=== PATIENT | male | born 1990 | race Caucasian/White ===

== ENCOUNTER 2019-12-27 05:05 | Observation (INO) | payer OTHER ==
[~2019-12-27] VITALS: Ht 170.2 cm; Wt 78.5 kg
[2019-12-27] MEDS ORDERED: MORPHINE SULFATE INJ 4 MG/ML INJ 1ML IV STA (05:08)
[2019-12-27] MEDS ORDERED: ONDANSETRON HCL INJ 2MG/ML 2ML 2 MG/ML VIAL IV STA (05:08)
[2019-12-27] MEDS ORDERED: SODIUM CHLORIDE 0.9% 1000ML 1,000 ML IV STA (05:08)
[2019-12-27] MEDS ORDERED: DIATRIZOATE MEGL/DIATRIZOA SOD 30 ML BTL PO ONE (05:13)
[2019-12-27 05:31] LABS: BASOPHILS % 0.2 % (0.0-1.0); EOSINOPHILS % 0.3 % (0.0-6.0); HEMATOCRIT 45.7 % (38.2-49.6); HEMOGLOBIN 15.3 g/dL (14.0-18.0); LYMPHOCYTES # (AUTO) 1.5 (1.0-3.2); LYMPHOCYTES % 14.5 % (18.0-39.1); MEAN CORPUSCULAR HEMOGLOBIN 30.4 pg (28-32); MEAN CORPUSCULAR HGB CONC 33.5 g/dL (31-35); MEAN CORPUSCULAR VOLUME 90.9 fL (81-99); MONOCYTES # (AUTO) 0.6 (0.2-0.8); MONOCYTES % 5.6 % (4.4-11.3); NEUTROPHILS # (AUTO) 7.9 (2.1-6.9); NEUTROPHILS % 79.2 % (38.7-80.0); PLATELET COUNT 249 x10e3/uL (140-360); RED BLOOD COUNT 5.03 x10e6/uL (4.3-5.7); RED CELL DISTRIBUTION WIDTH 12.2 % (11.7-14.4)
[2019-12-27 05:52] LABS: ALANINE AMINOTRANSFERASE 14 IU/L (0-55); ALBUMIN 4.4 g/dL (3.5-5.0); ALBUMIN/GLOBULIN RATIO 1.6 (0.8-2.0); ALKALINE PHOSPHATASE 57 IU/L (40-150); ANION GAP 10.9 mmol/L (8-16); BLOOD UREA NITROGEN 11 mg/dL (7-26); BUN/CREATININE RATIO 10 (6-25); CARBON DIOXIDE 29 mmol/L (22-29); CHLORIDE 104 mmol/L (98-107); CREATININE, SERUM 1.11 mg/dL (0.72-1.25); EST GLOMERULAR FILTRATION RATE > 60 ML/MIN (60-); GLUCOSE 102 mg/dL (74-118); LIPASE 23 U/L (8-78); POTASSIUM 3.9 mmol/L (3.5-5.1); SODIUM 140 mmol/L (136-145)
[2019-12-27] MEDS ORDERED: SODIUM CHLORIDE 0.9% 50ML 50 ML ONE (06:09)
[2019-12-27] MEDS ORDERED: IOPAMIDOL 370 MG/ML 200 ML INFUS..BTL INJ ONE (06:10)
[2019-12-27 06:21] LABS: CLARITY,URINE TURBID (CLEAR); COLOR,URINE YELLOW (YELLOW); LEUKOCYTE ESTERASE ,URINE NEGATIVE (NEGATIVE); NITRITE,URINE NEGATIVE (NEGATIVE); PROTEIN,URINE DIPSTICK NEGATIVE (NEGATIVE); URINE UROBILINOGEN 1 mg/dL (0.2 - 1)
[2019-12-27 06:22] LABS: BILIRUBIN,URINE MODERATE (NEGATIVE); KETONES,URINE NEGATIVE (NEGATIVE)
[2019-12-27 06:26] LABS: AMORPHOUS SEDIMENT,URINE MANY (FEW); BACTERIA,URINE RARE /HPF; MUCUS,URINE MODERATE (RARE); WBC,URINE (MAN) 0-5 /HPF (0-5)
--- NOTE | 2019-12-27 06:42 | Diagnostic Imaging Report ---
EXAM: CT Abdomen and Pelvis WITH contrast INDICATION: Right lower quadrant pain. Appendicitis. COMPARISON: None. TECHNIQUE: Abdomen and pelvis were scanned utilizing a multidetector helical scanner from the lung base to the pubic symphysis after administration of IV contrast. Coronal and sagittal reformations were obtained. Routine protocol was performed. Scan was performed when during portal venous phase. IV CONTRAST: 100 cc Isovue-370. ORAL CONTRAST: Water RADIATION DOSE: Total DLP: 292.78 mGy*cm Estimated effective dose: (DLP x 0.015 x size factor) mSv COMPLICATIONS: None FINDINGS: LINES and TUBES: None. LOWER THORAX: Unremarkable HEPATOBILIARY: No focal hepatic lesions. No biliary ductal dilation. GALLBLADDER: No radio-opaque stones or sludge. No wall thickening. SPLEEN: Enlarged measuring 15.6 cm in length. PANCREAS: No focal masses or ductal dilatation. ADRENALS: No adrenal nodules KIDNEYS/URETERS: Kidneys enhance symmetrically. No hydronephrosis. No cystic or solid mass lesions. No stones. GI TRACT: No abnormal distention, wall thickening, or evidence of bowel obstruction. The appendix is mildly dilated up to 1.0 cm in diameter, with minimal surrounding inflammatory changes which may reflect early appendicitis. PELVIC ORGANS/BLADDER: Unremarkable. LYMPH NODES: No lymphadenopathy. VESSELS: Unremarkable. PERITONEUM / RETROPERITONEUM: No free air or fluid. BONES: Left effusion of L4-L5 with transpedicular screws. SOFT TISSUES: Unremarkable. IMPRESSION: 1. Findings acute suggestive of acute appendicitis in this patient's clinical setting. 2. Splenomegaly. 3. Discussed with Dr. Waller from the [facility] [place] at 6:45 AM on 12/27/19. Signed by: Dr. Alverto Piper M.D. on 12/27/2019 6:46 AM
--- OUTSIDE RECORDS SUMMARY | 2019-12-27 07:04 | XMS REPORT ---
Author Author [facility] Address Unknown Phone Unavailable Care Team Providers Care Lithographic General Worker Name Role Phone CIRA KATHERINE Unavailable Unavailable SAMARIA JAMES Unavailable Unavailable ANGEL LUIS LAZARO Unavailable Unavailable Problems This patient has no known problems. Allergies, Adverse Reactions, Alerts This patient has no known allergies or adverse reactions. Medications This patient has no known medications. Results Test Description Test Time Test Comments Text Results Atomic Results Result Comments CT ABDOMEN/PELVIS W 2019-12-27 06:27:00 [place] [address] Patient Name: PANDA SKELTON MR #: [id number] : 1990 Age/Sex: 29/M Req #: [id number] Adm Physician: Ordered by: KATHERINE WALLER DO Report #: [id number] Location: ER Room/Bed: Procedure: [id number] CT/CT ABDOMEN/PELVIS W Exam Date: Exam Time: REPORT STATUS: Signed EXAM: CT Abdomen and Pelvis WITH contrast INDICATION: Right lower quadrant pain. Appendicitis. COMPARISON: None. TECHNIQUE: Abdomen and pelvis were scanned utilizing a multidetector helical scanner from the lung base to the pubic symphysis after administration of IV contrast. Coronal and sagittal reformations were obtained. Routine protocol was performed. Scan was performed when during portal venous phase. IV CONTRAST: 100 cc Isovue-370. ORAL CONTRAST: Water RADIATION DOSE: Total DLP: 292.78 mGy*cm Estimated effective dose: (DLP x 0.015 x size factor) mSv COMPLICATIONS: None FINDINGS: LINES and TUBES: None. LOWER THORAX: Unremarkable HEPATOBILIARY: No focal hepatic lesions. No biliary ductal dilation. GALLBLADDER: No radio-opaque stones or sludge. No wall thickening. SPLEEN: Enlarged measuring 15.6 cm in length. PANCREAS: No focal masses or ductal dilatation. ADRENALS: No adrenal nodules KIDNEYS/URETERS: Kidneys enhance symmetrically. No hydronephrosis. No cystic or solid mass lesions. No stones. GI TRACT: No abnormal distention, wall thickening, or evidence of bowel obstruction. The appendix is mildly dilated up to 1.0 cm in diameter, with minimal surrounding inflammatory changes which may reflect early appendicitis. PELVIC ORGANS/BLADDER: Unremarkable. LYMPH NODES: No lymphadenopathy. VESSELS: Unremarkable. PERITONEUM / RETROPERITONEUM: No free air or fluid. BONES: Left effusion of L4-L5 with transpedicular screws. SOFT TISSUES: Unremarkable. IMPRESSION: 1. Findings acute suggestive of acute appendicitis in this patient's clinical setting. 2. Splenomegaly. 3. Discussed with Dr. Waller from the our at 6:45 AM on 12/27/19. Signed by: Dr. Alverto Dunlap M.D. on 12/27/2019 6:46 AM Dictated By: SUHAS DUNLAP MD, MD [id number] Transcribed By: JACKELINE on 12/27/19 0646 COPY TO: KATHERINE WALLER DO CT ABDOMEN/PELVIS W/CONTRAST 2018-11-20 18:42:03 Procedure: CT ABDOMEN/PELVIS W/CONTRASTOrder Date: 11/20/2018 4:38 PMOrdering Provider: SAMARIA Wilsoninical Indication: [id number]: Left sided abdominal painComparison: NoneTechnique: Using a helical scanner, sequential axial imaging of the abdomen andpelvis were obtained following the administration of oral and IV contrast. Theexam extended from the level of the lung bases superiorly to the level of thepubic symphysis inferiorly. 2-D sagittal and coronal reconstructed images wereobtained. This exam was performed according to the departmentaldose- optimization program which includes automated exposure control, adjustmentof the mA and/or kV according to patient size and/or use of iterativereconstruction techniques.Findings:The lung bases are clear.No basilar consolidation or effusion.The liver is normal in size and density. Hepatic contour is normal. There are nohepatic masses. No intrahepatic ductal dilatation.The gallbladder is normal in size and density. There is no evidence ofcholelithiasis or cholecystitis by CT criteria.The spleen is mildly enlarged but overall stable. There are no intrinsic splenicmasses. There is no evidence of a subcapsular hematoma or fluid collection.The pancreas is normal in size and density. There are no pancreaticcalcifications or masses. There is no pancreatic ductal dilatation.The adrenal glands are normal in size bilaterally. There are no adrenal massesbilaterally.The right kidney is normal in size and shape.The renal cortical enhancement is normal.There are no calculi, masses, or hydronephrosis.The left kidney is normal in size and shape.The renal cortical enhancement is normal.There are no calculi, masses, or hydronephrosis.Aorta is normal in size and diameter. There is no aneurysm. The IVC is normal insize and location.There is no lymphadenopathy in the abdomen, pelvis, or either inguinal region.Mild diverticulosis of the distal descending and sigmoid colon without evidenceof diverticulitis.There is no small or large bowel distention. There is no bowel thickening. Thereare no inflammatory changes in the abdomen or pelvis.The appendix is visualized and normal in diameter. There is no periappendicealsoft tissue stranding. No CT findings of appendicitis.Urinary bladder has a normal appearance.No inguinal masses.Intact fusion at L4- 5.IMPRESSION:1. No acute inflammatory change in the abdomen or pelvis.2. Mild diverticulosis of the distal descending and proximal sigmoid colonwithout diverticulitis.3. Stable mild splenomegaly.4. Intact fusion at L4-5.5. No other significant findings.This final report was electronically signed by Dr Cal Forbes MD 11/20/20186:35 PMDictated By: CAL FORBES.Date: 11/20/2018 18:35 URINALYSIS WITH MICROSCOPIC 2018-11-20 17:59:00 Color (test code=UCOLR) Yellow Lt. Yellow Clarity (test code=UCLAR) Clear Glucose (test code=UGLUC) Negative Negative Bilirubin (test code=UBILI) Negative Negative Ketones (test code=UKET) Negative Negative Specific Otis (test code=USPGR) 1.015 1.005-1.030 Blood (test code=UBLD) Negative Negative PH (test code=UPH) 6.0 4.5-8.0 Protein (test code=UPROT) Negative Negative Urobilinogen (test code=U UROB) 0.2 E.U./dL >0.2 Nitrite (test code=UNITR) Negative Negative Leukocyte Esterase (test code=ULEUK) Negative Negative Bacteria (test code=UBACT) n/a NONE SEEN AMYLASE, [id number] 17:25:00* Test Item Value Reference Range Comments Amylase (test code=AMYL) 54 U/L 12-103 [id number] 17:25:00* Test Item Value Reference Range Comments Glucose (test code=GLU) 122 mg/dl 75-110 BUN (test code=BUN) 15.0 mg/dl 6.0-17.0 Creatinine (test code=CREA) 1.2 mg/dl 0.4-1.2 Sodium (test code=NA) 137 mmol/l 137-145 Potassium (test code=K) 3.4 mmol/l 3.5-5.0 Chloride (test code=CL) 102 mmol/l 98-107 CO2 (test code=CO2) 24 mmol/l 22-30 Calcium (test code=CALC) 9.0 mg/dl 8.4-10.2 T Protein (test code=TP) 7.2 gm/dl 5.1-8.7 Albumin (test code=ALB) 4.2 gm/dl 3.5-4.6 A/G Ratio (test code=AGRAT) 1.4 % 1.1-2.2 AST (SGOT) (test code=AST) 25 U/L 11-36 ALT (SGPT) (test code=ALT) 43 U/L 11-40 Alkaline Phos (test code=ALKP) 71 U/L 47-114 Total Bilirubin (test code=TBIL) 0.6 mg/dl 0.2-1.2 Globulin (test code=GLOBU) 3.0 gm/dl 2.3-3.5 Calcium, Corrected (test code=CALCCORR) 8.8 mg/dl 8.4-10.2 Various formulas exist for corrected serum calcium results, each yielding different values. This corrected result was based on the formula: Corrected Calcium=SerumCalcium + [0.8 * ( 4 - SerumAlbumin)] EGFR if (test code=EGFRAA) >60 mL/min/1.73m\S\2 EGFR if Non- (test code=EGFRNA) >60 mL/min/1.73m\S\2 Estimated Glomerular Filtration Rate (eGFR) Reference Intervals Decision Points for 18 years and older and average body mass: >=60 Does not exclude kidney disease. 30 - 59 Suggests moderate chronic kidney disease and indicates the need for further investigation including assessment of proteinuria and cardiovascular factors. < 30 Usually indicates a need for referral for assessment and management of chronic kidney failure. [id number] 17:25:00* Test Item Value Reference Range Comments Lipase (test code=LIPA) 170 U/L 8-223 CBC WITH AUTO [id number] 17:11:00* Test Item Value Reference Range Comments WBC (test code=WBC) 6.25 10\S\3/ul 4.80-10.80 RBC (test code=RBC) 4.87 10\S\6/ul 4.70-6.10 Hemoglobin (test code=HGB) 15.2 gm/dl 14.0-18.0 Hematocrit (test code=HCT) 42.6 % 42.0-50.0 MCV (test code=MCV) 87.5 fL 80.0-94.0 MCH (test code=MCH) 31.2 pg 27.0-31.0 MCHC (test code=MCHC) 35.7 gm/dl 33.0-37.0 RDW (test code=RDWVC) 11.8 % 11.5-14.5 Platelet (test code=PLT) 233 10\S\3/ul 130-400 MPV (test code=MPV) 9.7 fL 7.4-10.4 NE% (test code=NE) 62.9 % 42.0-75.0 LY% (test code=LY) 29.8 % 13.0-42.0 MO% (test code=MO) 5.4 % 4.0-14.0 EO% (test code=EO) 1.4 % 1.0-5.0 BA% (test code=BA) 0.3 % 0.0-3.0 IG% (test code=IG%) 0.2 % 0.0-0.4 NRBC, Auto (test code=NRBC_AUTO) 0 /100WBC 0-2 CT ABDOMEN/PELVIS W/[id number] 00:52:36NPO 4 hours. Do not withhold meds EXAM:CT Abdomen and Pelvis With Intravenous ContrastEXAM DATE/TIME:07/23/2018 12 :02 AMCLINICAL HISTORY:28 years old, male; Pain; Abdominal pain; Localized; Righ t lower quadrant(rlq); Prior surgery; Surgery date: 6+ months; Surgery type: Low back surgery;Patient HX: Right lower quadrant abdomen pain x 3 days without anya sea orvomiting.TECHNIQUE:Axial computed tomography images of the abdomen and pel vis with intravenouscontrast. All CT scans at this facility use at least one of these doseoptimization techniques: automated exposure control; mA and/or kV adj ustmentper patient size (includes targeted exams where dose is matched to clinic alindication); or iterative reconstruction.Coronal and sagittal reformatted imag es were created and reviewed.CONTRAST:100 mL of ISOVUE 300 administered intraven ously.COMPARISON:No relevant prior studies available.FINDINGS:Lung bases: Unrem arkable No mass. No consolidation.ABDOMEN:Liver: No mass or intrahepatic bili esme ductal dilatation.Gallbladder and bile ducts: No wall thickening, visualize d gallstone orpericholecystic fluid. No extrahepatic ductal dilatation.Pancreas: No mass, calcification, ductal dilatation or periperipancreaticeffusion.Spleen: The spleen is prominent measuring 17 cm length. No focal lesion orperisplenic abnormality.Adrenals: Unremarkable. No mass lesions.Kidneys and ureters: No m ass, hydronephrosis or urolithiasis. Normal ureters.Stomach and bowel: No bowel wall thickening, mesenteric abnormalities orobstruction.PELVIS:Appendix: Well visualized. No findings to suggest acute appendicitis.Bladder: Unremarkable. No focal wall thickening as visualized. Normalperivesicle spaces.Reproductive: No mass or fluid collections.ABDOMEN and PELVIS:Intraperitoneal space: Unremarkab le No free air. No significant fluidcollection.Bones/joints: No acute fractur e. No dislocation.Soft tissues: Unremarkable.Vasculature: Unremarkable No ab dominal aortic aneurysm.Lymph nodes: No pathologic lymph node enlargement.IMPRE SSION:No acute findings. Splenomegaly.This Final report was electronically sign ed by Rito Cano MD on 23 Jul 201812:52 AM CDT.Dictated By: Tone CANO e: 07/23/2018 00:52URINALYSIS WITHOUT [id number] 00:49:00* Test Item Value Reference Range Comments Color (test code=UCOLR) Yellow Lt. Yellow Clarity (test code=UCLAR) Clear Glucose (test code=UGLUC) Negative Negative Bilirubin (test code=UBILI) Negative Negative Ketones (test code=UKET) Negative Negative Specific Otis (test code=USPGR) 1.020 1.005-1.030 Blood (test code=UBLD) Negative Negative PH (test code=UPH) 6.0 4.5-8.0 Protein (test code=UPROT) Negative Negative Urobilinogen (test code=U UROB) 0.2 E.U./dL >0.2 Nitrite (test code=UNITR) Negative Negative Leukocyte Esterase (test code=ULEUK) Negative Negative LIPASE, [id number] 23:33:00* Test Item Value Reference Range Comments Lipase (test code=LIPA) 217 U/L 8-223 [id number] 23:33:00* Test Item Value Reference Range Comments Glucose (test code=GLU) 110 mg/dl 75-110 BUN (test code=BUN) 17.0 mg/dl 6.0-17.0 Creatinine (test code=CREA) 1.1 mg/dl 0.4-1.2 Sodium (test code=NA) 139 mmol/l 137-145 Potassium (test code=K) 3.6 mmol/l 3.5-5.0 Chloride (test code=CL) 105 mmol/l 98-107 CO2 (test code=CO2) 24 mmol/l 22-30 Calcium (test code=CALC) 9.0 mg/dl 8.4-10.2 T Protein (test code=TP) 6.8 gm/dl 5.1-8.7 Albumin (test code=ALB) 3.7 gm/dl 3.5-4.6 A/G Ratio (test code=AGRAT) 1.2 % 1.1-2.2 AST (SGOT) (test code=AST) 18 U/L 11-36 ALT (SGPT) (test code=ALT) 33 U/L 11-40 Alkaline Phos (test code=ALKP) 56 U/L 47-114 Total Bilirubin (test code=TBIL) 0.5 mg/dl 0.2-1.2 Globulin (test code=GLOBU) 3.1 gm/dl 2.3-3.5 Calcium, Corrected (test code=CALCCORR) 9.2 mg/dl 8.4-10.2 Various formulas exist for corrected serum calcium results, each yielding different values. This corrected result was based on the formula: Corrected Calcium=SerumCalcium + [0.8 * ( 4 - SerumAlbumin)] EGFR if (test code=EGFRAA) >60 mL/min/1.73m\S\2 EGFR if Non- (test code=EGFRNA) >60 mL/min/1.73m\S\2 Estimated Glomerular Filtration Rate (eGFR) Reference Intervals Decision Points for 18 years and older and average body mass: >=60 Does not exclude kidney disease. 30 - 59 Suggests moderate chronic kidney disease and indicates the need for further investigation including assessment of proteinuria and cardiovascular factors. < 30 Usually indicates a need for referral for assessment and management of chronic kidney failure. CBC WITH AUTO [id number] 23:20:00* Test Item Value Reference Range Comments WBC (test code=WBC) 6.60 10\S\3/ul 4.80-10.80 RBC (test code=RBC) 4.72 10\S\6/ul 4.70-6.10 Hemoglobin (test code=HGB) 14.7 gm/dl 14.0-18.0 Hematocrit (test code=HCT) 41.7 % 42.0-50.0 MCV (test code=MCV) 88.3 fL 80.0-94.0 MCH (test code=MCH) 31.1 pg 27.0-31.0 MCHC (test code=MCHC) 35.3 gm/dl 33.0-37.0 RDW (test code=RDWVC) 11.6 % 11.5-14.5 Platelet (test code=PLT) 207 10\S\3/ul 130-400 MPV (test code=MPV) 9.4 fL 7.4-10.4 NE% (test code=NE) 57.9 % 42.0-75.0 LY% (test code=LY) 31.8 % 13.0-42.0 MO% (test code=MO) 7.3 % 4.0-14.0 EO% (test code=EO) 2.3 % 1.0-5.0 BA% (test code=BA) 0.5 % 0.0-3.0 IG% (test code=IG%) 0.2 % 0.0-0.4 NRBC, Auto (test code=NRBC_AUTO) 0 /100WBC 0-2
--- OUTSIDE RECORDS SUMMARY | 2019-12-27 07:04 | XMS REPORT | Continuity of Care Document ---
Author Author [facility] Organization [facility] Address [address] [place] [address] ;hxz=[phone] Care Team Providers Care Financial Management Consultant Name Role Phone ANGEL LUIS LAZARO Admphys ANGEL LUIS LAZ[facility] Admission Diagnosis * No data in the System Social History Element Description Code Description Smoking Status Code System Start Date End Date Smoking Status [id number] Never smoker SNOMED-CT Problems * No data in the system Medications RxNorm Medication Dose Route Instructions Indications Start Date End Date Status 765980 Promethazine Hydrochloride 25 MG Oral Tablet 25 milligram oral orally every 6 hours as needed. (3 days) nausea and vomiting Active Allergies * No Known Allergies Results Laboratory Results Order: URINALYSIS W/O MICROSCOPIC EXAM Specimen Source: URINE SPECIMENS Body Site: [facility] Test Result Flag Range Unit Date 5778-03 1Color:Type:Pt:Urine:Nom Yellow A Lt. Yellow 07/23/2018 00:46 5767-9 1Appearance:Aper:Pt:Urine:Nom Clear 07/23/2018 00:46 2349-9 1Glucose:ACnc:Pt:Urine:Ord Negative Negative 07/23/2018 00:46 5770-3 1Bilirubin:ACnc:Pt:Urine:Ord:Test strip Negative Negative 07/23/2018 00:46 2514-8 1Ketones:ACnc:Pt:Urine:Ord:Test strip Negative Negative 07/23/2018 00:46 5811-5 1Specific gravity:Rden:Pt:Urine:Qn:Test strip 1.020 A 1.005-1.030 07/23/2018 00:46 5794-3 1Hemoglobin:ACnc:Pt:Urine:Ord:Test strip Negative Negative 07/23/2018 00:46 5803-2 1pH:LsCnc:Pt:Urine:Qn:Test strip 6.0 A 4.5-8.0 07/23/2018 00:46 20267-8 1Protein:ACnc:Pt:Urine:Ord:Test strip Negative Negative 07/23/2018 00:46 5818-0 1Urobilinogen:ACnc:Pt:Urine:Ord:Test strip 0.2 E.U./dL A 0.2 07/23/2018 00:46 5802-4 1Nitrite:ACnc:Pt:Urine:Ord:Test strip Negative Negative 07/23/2018 00:46 5799-2 1Leukocyte esterase:ACnc:Pt:Urine:Ord:Test strip Negative Negative 07/23/2018 00:46 * Performing Lab Footnotes:* [address] [place] [address] - [id number] - [address] [place], [place] [address] - MD: DIRECTOR JONATHAN WEIR Order: CBC PLATELET AUTO DIFF Specimen Source: BLOOD Body Site: LOINC Test Result Flag Range Unit Date 01890-7 1Leukocytes^^corrected for nucleated erythrocytes:NCnc:Pt:Bld:Qn:Automated count 6.6 4.80-10.80 10^3/ul 07/22/2018 23:11 789-8 1Erythrocytes:NCnc:Pt:Bld:Qn:Automated count 4.72 4.70-6.10 10^6/ul 07/22/2018 23:11 718-7 1Hemoglobin:MCnc:Pt:Bld:Qn 14.7 14.0-18.0 gm/dl 07/22/2018 23:11 4544-3 1Hematocrit:VFr:Pt:Bld:Qn:Automated count 41.7 L 42.0-50.0 % 07/22/2018 23:11 787-2 1Erythrocyte mean corpuscular volume:EntVol:Pt:RBC:Qn:Automated count 88.3 80.0-94.0 fL 07/22/2018 23:11 785-6 1Erythrocyte mean corpuscular hemoglobin:EntMass:Pt:RBC:Qn:Automated count 31.1 H 27.0-31.0 pg 07/22/2018 23:11 786-4 1Erythrocyte mean corpuscular hemoglobin concentration:MCnc:Pt:RBC:Qn:Automated count 35.3 33.0-37.0 gm/dl 07/22/2018 23:11 788-0 1Erythrocyte distribution width:Ratio:Pt:RBC:Qn:Automated count 11.6 11.5-14.5 % 07/22/2018 23:11 777-3 1Platelets:NCnc:Pt:Bld:Qn:Automated count 207 130-400 10^3/ul 07/22/2018 23:11 64258-1 1Platelet mean volume:EntVol:Pt:Bld:Qn:Automated count 9.4 A 7.4-10.4 fL 07/22/2018 23:11 770-8 1Neutrophils/100 leukocytes:NFr:Pt:Bld:Qn:Automated count 57.9 42.0-75.0 % 07/22/2018 23:11 736-9 1Lymphocytes/100 leukocytes:NFr:Pt:Bld:Qn:Automated count 31.8 13.0-42.0 % 07/22/2018 23:11 5905-5 1Monocytes/100 leukocytes:NFr:Pt:Bld:Qn:Automated count 7.3 4.0-14.0 % 07/22/2018 23:11 713-8 1Eosinophils/100 leukocytes:NFr:Pt:Bld:Qn:Automated count 2.3 1.0-5.0 % 07/22/2018 23:11 706-2 1Basophils/100 leukocytes:NFr:Pt:Bld:Qn:Automated count 0.5 0.0-3.0 % 07/22/2018 23:11 1IG% 0.2 0.0-0.4 % 07/22/2018 23:11 1NRBC, Auto 0 0-2 /100WBC 07/22/2018 23:11 * Performing Lab Footnotes:* 1[facility] - [id number] - [address] [place] [address], [place] [address] [facility] - MD: DIRECTOR JONATHAN WEIR Order: CMP COMPREHENSIVE METABOLIC PANEL Specimen Source: BLOOD Body Site: [facility] Test Result Flag Range Unit Date 1Glucose 110 75-110 mg/dl 07/22/2018 23:11 1BUN 17 6.0-17.0 mg/dl 07/22/2018 23:11 1Creatinine 1.1 0.4-1.2 mg/dl 07/22/2018 23:11 1Sodium 139 137-145 mmol/l 07/22/2018 23:11 1Potassium 3.6 3.5-5.0 mmol/l 07/22/2018 23:11 1Chloride 105 98-107 mmol/l 07/22/2018 23:11 1CO2 24 22-30 mmol/l 07/22/2018 23:11 1Calcium 9 8.4-10.2 mg/dl 07/22/2018 23:11 1T Protein 6.8 5.1-8.7 gm/dl 07/22/2018 23:11 1Albumin 3.7 3.5-4.6 gm/dl 07/22/2018 23:11 1A/G Ratio 1.2 1.1-2.2 % 07/22/2018 23:11 1AST (SGOT) 18 11-36 U/L 07/22/2018 23:11 1ALT (SGPT) 33 11-40 U/L 07/22/2018 23:11 1Alkaline Phos 56 47-114 U/L 07/22/2018 23:11 1Total Bilirubin 0.5 0.2-1.2 mg/dl 07/22/2018 23:11 1Globulin 3.1 2.3-3.5 gm/dl 07/22/2018 23:11 1Calcium, Corrected 9.2 8.4-10.2 mg/dl 07/22/2018 23:11 Note: Various formulas exist for corrected serum calcium results, each yielding different values. This corrected result was based on the formula: Corrected Calcium=SerumCalcium + [0.8 * ( 4 - SerumAlbumin)] 1EGFR if >60 mL/min/1.73m^2 07/22/2018 23:11 1EGFR if Non- >60 mL/min/1.73m^2 07/22/2018 23:11 Note: Estimated Glomerular Filtration Rate (eGFR) Reference Intervals Decision Points for 18 years and older and average body mass: >=60 Does not exclude kidney disease. 30 - 59 Suggests moderate chronic kidney disease and indicates the need for further investigation including assessment of proteinuria and cardiovascular factors. < 30 Usually indicates a need for referral for assessment and management of chronic kidney failure. * Performing Lab Footnotes:* 1[facility] [id number] - [address] [place] [address] CORNELIO De La Vega MD: DIRECTOR JONATHAN WEIR Order: LIPASE SERUM Specimen Source: BLOOD Body Site: [facility] Test Result Flag Range Unit Date 1Lipase 217 8-223 U/L 07/22/2018 23:11 * Performing Lab Footnotes:* [address] [place] [address] [id number] - [address] [place] [address] CORNELIO De La Vega MD: DIRECTOR JONATHAN WEIR Radiology Results Order: [id number] CT ABDOMEN/PELVIS W/CONTRAST* Exam Completion Date:07/23/2018 00:02 EXAM: CT Abdomen and Pelvis With Intravenous ContrastEXAM DATE/TIME: 8 12:02 AMCLINICAL HISTORY: 28 years old, male; Pain; Abdominal pain; Localized ; Right lower quadrant (rlq); Prior surgery; Surgery date: 6+ months; Surgery ty pe: Low back surgery; Patient HX: Right lower quadrant abdomen pain x 3 days wit hout nausea or vomiting.TECHNIQUE: Axial computed tomography images of the abdo men and pelvis with intravenous contrast. All CT scans at this facility use at least one of these dose optimization techniques: automated exposure control; mA and/or kV adjustment per patient size (includes targeted exams where dose is mat ched to clinical indication); or iterative reconstruction. Coronal and sagittal reformatted images were created and reviewed.CONTRAST: 100 mL of ISOVUE 300 ad ministered intravenously. COMPARISON: No relevant prior studies available.FIND INGS: Lung bases: Unremarkable No mass. No consolidation. ABDOMEN: Liver: No mass or intrahepatic biliary ductal dilatation. Gallbladder and bile ducts: No wall thickening, visualized gallstone or pericholecystic fluid. No extrahepa tic ductal dilatation. Pancreas: No mass, calcification, ductal dilatation or periperipancreatic effusion. Spleen: The spleen is prominent measuring 17 cm l ength. No focal lesion or perisplenic abnormality. Adrenals: Unremarkable. No mass lesions. Kidneys and ureters: No mass, hydronephrosis or urolithiasis. No rmal ureters. Stomach and bowel: No bowel wall thickening, mesenteric abnormal ities or obstruction. PELVIS: Appendix: Well visualized. No findings to sugges t acute appendicitis. Bladder: Unremarkable. No focal wall thickening as visua lized. Normal perivesicle spaces. Reproductive: No mass or fluid collections. ABDOMEN and PELVIS: Intraperitoneal space: Unremarkable No free air. No sign ificant fluid collection. Bones/joints: No acute fracture. No dislocation. S oft tissues: Unremarkable. Vasculature: Unremarkable No abdominal aortic ane urysm. Lymph nodes: No pathologic lymph node enlargement.IMPRESSION: No acute findings. Splenomegaly.This Final report was electronically signed by Delia Harman MD on 23 Jul 2018 12:52 AM CDT.Dictated By: DELIA CANODate: 07/07 00:52 Vital Signs Vitals Value Date Body Temperature 98.9 F 07/23/2018 Pulse Rate 83 (beats)/min 07/23/2018 Respiratory Rate 18 (breaths)/min 07/23/2018 O2% BldC Oximetry 96 % 07/23/2018 BP Systolic 124 mmHg 07/23/2018 BP Diastolic 79 mmHg 07/23/2018 Height 67 in 07/22/2018 Weight Measured 200 lbs 07/22/2018 BSA (Body Surface Area) 2.71346 m2 07/22/2018 BMI (Body Mass Index) 31.3 kg/m2 07/22/2018 Advance Directives Patient does NOT have Living Will Directive Type Effective Date Survey Interviewer Notes Supporting Document Name Address Phone No Directive Type specified 07/22/2018 22:26 Not Specified Not Specified Not Specified None No Family History * Family History Unknown Plan of Care * No data in the system Procedures Code Code System Procedure Name Target Site Date of Procedure CT ABDOMEN/PELVIS W/CONTRAST 07/23/2018 00:52 [id number] SNOMED Spinal fusion of atlas-axis 01/2016 Encounters * No data in the system Immunizations * No data in the system Functional Status * No data in the system Hospital Discharge Instructions * Discharge Instructions 2* Discharge Diagnosis* acute abd pain * Important Information* Consult your physician or return to the Emergency Department immediately if worse, if not better as expected, or if any problems arise. * Follow Up Care* Yes * Important Information* Please understand that you have received care only on an emergency basis. If your condition does not improve, you should call your personal physician for follow-up care. If you do not have a physician, you may call the referred physician listed. * If you have questions about your care or these discharge instructions, you may call the Emergency Department. Please take your discharge paperwork with you to any follow-up appointments. * Follow Up Care* Patient To Schedule * Follow-Up With:* Primary Care Physician * Activity Level* As tolerated, unrestricted * Diet* Regular * Prescriptions Given Via:* Electronically sent to patient's preferred pharmacy. * Patient Teaching* Patient education provided
--- OUTSIDE RECORDS SUMMARY | 2019-12-27 07:04 | XMS REPORT | Continuity of Care Document ---
Author Author [facility] Organization [facility] Address [address] [place] [address] ;bsa=[phone] Care Team Providers Care Shear Tender Name Role Phone SAMARIA JAMES Admphys SAMARIA JAMES [facility] Admission Diagnosis Code Admission Diagnosis Date Abdominal pain Social History Element Description Code Description Smoking Status Code System Start Date End Date Smoking Status [id number] Never smoker SNOMED-CT Problems * No data in the system Medications RxNorm Medication Dose Route Instructions Indications Start Date End Date Status 891245 Ciprofloxacin 500 MG Oral Tablet 500 milligram oral orally every 12 hours (7 days) Active 680122 Dicyclomine Hydrochloride 20 MG Oral Tablet 20 milligram oral orally 4 times per day (5 days) Active 71035 Ondansetron 4 milligram oral orally every 6 hours as needed. (5 days) (as needed for nausea and vomiting) nausea and vomiting Active 088232 Promethazine Hydrochloride 25 MG Oral Tablet 25 milligram oral orally every 6 hours as needed. (3 days) nausea and vomiting No Longer Active Allergies * No Known Allergies Results Laboratory Results Order: UA URINALYSIS WITH MICROSCOPY Specimen Source: URINE SPECIMENS Body Site: [facility] Test Result Flag Range Unit Date 5778-6 1Color:Type:Pt:Urine:Nom Yellow A Lt. Yellow 11/20/2018 17:56 5767-9 1Appearance:Aper:Pt:Urine:Nom Clear 11/20/2018 17:56 2349-9 1Glucose:ACnc:Pt:Urine:Ord Negative Negative 11/20/2018 17:56 5770-3 1Bilirubin:ACnc:Pt:Urine:Ord:Test strip Negative Negative 11/20/2018 17:56 2514-8 1Ketones:ACnc:Pt:Urine:Ord:Test strip Negative Negative 11/20/2018 17:56 5811-5 1Specific gravity:Rden:Pt:Urine:Qn:Test strip 1.015 A 1.005-1.030 11/20/2018 17:56 5794-3 1Hemoglobin:ACnc:Pt:Urine:Ord:Test strip Negative Negative 11/20/2018 17:56 5803-2 1pH:LsCnc:Pt:Urine:Qn:Test strip 6.0 A 4.5-8.0 11/20/2018 17:56 20121-8 1Protein:ACnc:Pt:Urine:Ord:Test strip Negative Negative 11/20/2018 17:56 5818-0 1Urobilinogen:ACnc:Pt:Urine:Ord:Test strip 0.2 E.U./dL A 0.2 11/20/2018 17:56 5802-4 1Nitrite:ACnc:Pt:Urine:Ord:Test strip Negative Negative 11/20/2018 17:56 5799-2 1Leukocyte esterase:ACnc:Pt:Urine:Ord:Test strip Negative Negative 11/20/2018 17:56 5769-5 1Bacteria:Naric:Pt:Urine sed:Qn:Microscopy.light.HPF n/a A NONE SEEN 11/20/2018 17:56 * Performing Lab Footnotes:* [address] [place] [address] [id number] [place] [address] CORNELIO De La Vega MD: DIRECTOR JONATHAN WEIR Order: AMYLASE SERUM Specimen Source: BLOOD Body Site: LOINC Test Result Flag Range Unit Date 1Amylase 54 12-103 U/L 11/20/2018 17:00 * Performing Lab Footnotes:* [address] [place] [address] [id number] [place] [address] CORNELIO De La Vega MD: DIRECTOR JONATHAN WEIR Order: CBC PLATELET AUTO DIFF Specimen Source: BLOOD Body Site: [facility]INC Test Result Flag Range Unit Date 1Leukocytes^^corrected for nucleated erythrocytes:NCnc:Pt:Bld:Qn:Automated count 6.25 4.80-10.80 10^3/ul 11/20/2018 17:00 789-8 1Erythrocytes:NCnc:Pt:Bld:Qn:Automated count 4.87 4.70-6.10 10^6/ul 11/20/2018 17:00 718-7 1Hemoglobin:MCnc:Pt:Bld:Qn 15.2 14.0-18.0 gm/dl 11/20/2018 17:00 4544-3 1Hematocrit:VFr:Pt:Bld:Qn:Automated count 42.6 42.0-50.0 % 11/20/2018 17:00 787-2 1Erythrocyte mean corpuscular volume:EntVol:Pt:RBC:Qn:Automated count 87.5 80.0-94.0 fL 11/20/2018 17:00 785-6 1Erythrocyte mean corpuscular hemoglobin:EntMass:Pt:RBC:Qn:Automated count 31.2 H 27.0-31.0 pg 11/20/2018 17:00 786-4 1Erythrocyte mean corpuscular hemoglobin concentration:MCnc:Pt:RBC:Qn:Automated count 35.7 33.0-37.0 gm/dl 11/20/2018 17:00 788-0 1Erythrocyte distribution width:Ratio:Pt:RBC:Qn:Automated count 11.8 11.5-14.5 % 11/20/2018 17:00 777-3 1Platelets:NCnc:Pt:Bld:Qn:Automated count 233 130-400 10^3/ul 11/20/2018 17:00 55820-9 1Platelet mean volume:EntVol:Pt:Bld:Qn:Automated count 9.7 A 7.4-10.4 fL 11/20/2018 17:00 770-8 1Neutrophils/100 leukocytes:NFr:Pt:Bld:Qn:Automated count 62.9 42.0-75.0 % 11/20/2018 17:00 736-9 1Lymphocytes/100 leukocytes:NFr:Pt:Bld:Qn:Automated count 29.8 13.0-42.0 % 11/20/2018 17:00 5905-5 1Monocytes/100 leukocytes:NFr:Pt:Bld:Qn:Automated count 5.4 4.0-14.0 % 11/20/2018 17:00 713-8 1Eosinophils/100 leukocytes:NFr:Pt:Bld:Qn:Automated count 1.4 1.0-5.0 % 11/20/2018 17:00 706-2 1Basophils/100 leukocytes:NFr:Pt:Bld:Qn:Automated count 0.3 0.0-3.0 % 11/20/2018 17:00 1IG% 0.2 0.0-0.4 % 11/20/2018 17:00 1NRBC, Auto 0 0-2 /100WBC 11/20/2018 17:00 * Performing Lab Footnotes:* [address] [place] [address] - [id number] - [address] [place] [address] CORNELIO De La Vega MD: DIRECTOR JONATHAN WEIR Order: CMP COMPREHENSIVE METABOLIC PANEL Specimen Source: BLOOD Body Site: LOINC Test Result Flag Range Unit Date 1Glucose 122 H 75-110 mg/dl 11/20/2018 17:00 1BUN 15 6.0-17.0 mg/dl 11/20/2018 17:00 1Creatinine 1.2 0.4-1.2 mg/dl 11/20/2018 17:00 1Sodium 137 137-145 mmol/l 11/20/2018 17:00 1Potassium 3.4 L 3.5-5.0 mmol/l 11/20/2018 17:00 1Chloride 102 98-107 mmol/l 11/20/2018 17:00 1CO2 24 22-30 mmol/l 11/20/2018 17:00 1Calcium 9 8.4-10.2 mg/dl 11/20/2018 17:00 1T Protein 7.2 5.1-8.7 gm/dl 11/20/2018 17:00 1Albumin 4.2 3.5-4.6 gm/dl 11/20/2018 17:00 1A/G Ratio 1.4 1.1-2.2 % 11/20/2018 17:00 1AST (SGOT) 25 11-36 U/L 11/20/2018 17:00 1ALT (SGPT) 43 H 11-40 U/L 11/20/2018 17:00 1Alkaline Phos 71 47-114 U/L 11/20/2018 17:00 1Total Bilirubin 0.6 0.2-1.2 mg/dl 11/20/2018 17:00 1Globulin 3 2.3-3.5 gm/dl 11/20/2018 17:00 1Calcium, Corrected 8.8 8.4-10.2 mg/dl 11/20/2018 17:00 Note: Various formulas exist for corrected serum calcium results, each yielding different values. This corrected result was based on the formula: Corrected Calcium=SerumCalcium + [0.8 * ( 4 - SerumAlbumin)] 1EGFR if >60 mL/min/1.73m^2 11/20/2018 17:00 1EGFR if Non- >60 mL/min/1.73m^2 11/20/2018 17:00 Note: Estimated Glomerular Filtration Rate (eGFR) Reference [...] chronic kidney failure. * Performing Lab Footnotes:* 1[facility] [id number] - [address] [place] [address] CORNELIO De La Vega MD: DIRECTOR JONATHAN WEIR Order: LIPASE SERUM Specimen Source: BLOOD Body Site: LOINC Test Result Flag Range Unit Date 1Lipase 170 8-223 U/L 11/20/2018 17:00 * Performing Lab Footnotes:* 1[facility] [id number] - [address] [place] [address] CORNELIO De La Vega MD: DIRECTOR JONATHAN WEIR Radiology Results Order: [id number] CT ABDOMEN/PELVIS W/CONTRAST* Exam Completion Date:11/20/2018 16:38 Procedure: CT ABDOMEN/PELVIS W/CONTRAST Order Date: 11/20/2018 4:38 PMO rdering Provider: SAMARIA Wilsoninical Indication: [id number]: Left sided abdom inal painComparison: NoneTechnique: Using a helical scanner, sequential axial i maging of the abdomen andpelvis were obtained following the administration of or al and IV contrast. Theexam extended from the level of the lung bases superiorly to the level of thepubic symphysis inferiorly. 2-D sagittal and coronal reconst ructed images wereobtained. This exam was performed according to the [facility] ldose-optimization program which includes automated exposure control, adjustment of the mA and/or kV according to patient size and/or use of iterativereconstruct ion techniques.Findings: The lung bases are clear. No basilar consolidation or e ffusion.The liver is normal in size and density. Hepatic contour is normal. Ther e are nohepatic masses. No intrahepatic ductal dilatation.The gallbladder is nor mal in size and density. There is no evidence ofcholelithiasis or cholecystitis by CT criteria.The spleen is mildly enlarged but overall stable. There are no in trinsic splenicmasses. There is no evidence of a subcapsular hematoma or fluid c ollection.The pancreas is normal in size and density. There are no pancreaticcal cifications or masses. There is no pancreatic ductal dilatation.The adrenal glan ds are normal in size bilaterally. There are no adrenal massesbilaterally.The ri ght kidney is normal in size and shape. The renal cortical enhancement is normal . There are no calculi, masses, or hydronephrosis.The left kidney is normal in s ize and shape. The renal cortical enhancement is normal. There are no calculi, m asses, or hydronephrosis.Aorta is normal in size and diameter. There is no aneur ysm. The IVC is normal insize and location.There is no lymphadenopathy in the ab domen, pelvis, or either inguinal region.Mild diverticulosis of the distal desce nding and sigmoid colon without evidenceof diverticulitis.There is no small or l arge bowel distention. There is no bowel thickening. Thereare no inflammatory ch anges in the abdomen or pelvis.The appendix is visualized and normal in diameter . There is no periappendicealsoft tissue stranding. No CT findings of appendicit is.Urinary bladder has a normal appearance.No inguinal masses.Intact fusion at L 4-5.IMPRESSION: 1. No acute inflammatory change in the abdomen or pelvis.2. Mild diverticulosis of the distal descending and proximal sigmoid colonwithout diver ticulitis.3. Stable mild splenomegaly.4. Intact fusion at L4-5.5. No other signi ficant findings.This final report was electronically signed by Dr Cal Forbes MD 11/20/20186:35 PMDictated By: CAL FORBESDate: 11/20/2018 18:35 Vital Signs Vitals Value Date Pulse Rate 88 (beats)/min 11/20/2018 Respiratory Rate 16 (breaths)/min 11/20/2018 BP Systolic 121 mmHg 11/20/2018 BP Diastolic 80 mmHg 11/20/2018 O2% BldC Oximetry 97 % 11/20/2018 Body Temperature 98.5 F 11/20/2018 Height 67 in 11/20/2018 Weight Measured 190 lbs 11/20/2018 BSA (Body Surface Area) 1.18599 m2 11/20/2018 BMI (Body Mass Index) 29.8 kg/m2 11/20/2018 Advance Directives Patient does NOT have Living Will Directive Type Effective Date Neurodiagnostic Technician Notes Supporting Document Name Address Phone No Directive Type specified 07/22/2018 22:26 Not Specified Not Specified Not Specified None No Family History * Family History Unknown Plan of Care * No data in the system Procedures Code Code System Procedure Name Target Site Date of Procedure CT ABDOMEN/PELVIS W/CONTRAST 11/20/2018 18:42 Encounters Date Code Diagnosis Status (SNOMED-CT) - [id number] DVRTCLOS LG INT NO PERF/ABSC W/O BL Active Immunizations * No data in the system Functional Status * No data in the system Hospital Discharge Instructions * No data in the system
--- NOTE | 2019-12-27 07:08 | NUR ---
report received from Rena CUREIL
[2019-12-27] MEDS: MORPHINE SULFATE 2 MG/ML SYR 1ML IV PRN ×3 (07:50→23:40)
[2019-12-27] MEDS: ONDANSETRON HCL INJ 2MG/ML 2ML 2 MG/ML VIAL IV PRN ×3 (07:52→23:40)
[2019-12-27] MEDS: PIPER-TAZ 3.375 GM 50 ML IV SCH ×4 (09:33→23:43)
[2019-12-27] MEDS ORDERED: SUGAMMADEX SODIUM 200 MG/2 ML VIAL IV ONE (09:48)
[2019-12-27 10:00] VITALS: BP 125/96
--- NOTE | 2019-12-27 10:00 | NUR ---
Received patient transferred via wheelchair from ER. Denies pain at this time. Respiration even and unlabored.
[2019-12-27] MEDS ORDERED: BUPIVACAINE HCL 0.5% INJ 30 ML VIAL INJ ONE (10:08)
[2019-12-27 10:11] VITALS: BP 125/96
--- NOTE | 2019-12-27 10:40 | NUR ---
Transported patient to OR for surgery at this time.
--- NOTE | 2019-12-27 10:45 | Consultation ---
DATE OF CONSULTATION: 12/27/2019 HISTORY OF PRESENT ILLNESS: The patient is a 29-year-old male, who presents with complaints of abdominal pain, says the pain started yesterday. He has associated nausea and vomiting. He came to the emergency room, where CT of the abdomen and pelvis revealed findings suggesting acute appendicitis. The pain started periumbilical, not localized in right lower quadrant. He denies any urinary symptoms. PAST MEDICAL HISTORY: Significant for previous back surgery 6 years ago. MEDICATIONS: His only medication is Adderall. ALLERGIES: HE HAS NO KNOWN ALLERGIES. FAMILY HISTORY: Noncontributory. SOCIAL HISTORY: The patient does not smoke cigarettes. Occasionally drinks alcohol. REVIEW OF SYSTEMS: As stated above, otherwise was negative. PHYSICAL EXAMINATION: GENERAL: The patient is awake and alert, in no distress. VITAL SIGNS: Normal. HEENT: Sclerae is not icteric. NECK: Supple. No masses. LUNGS: Equal breath sounds are clear bilaterally. CARDIAC: Regular rate and rhythm with no murmur. ABDOMEN: Tender in the right lower quadrant, localized signs of peritonitis. There is no mass. No organomegaly. EXTREMITIES: Have no edema. Pulses are palpable. NEUROLOGIC: Intact. LABORATORY TESTS: White blood cell count is 10,000 with a left shift differential. Hemoglobin and hematocrit are normal. Chemistries are essentially normal. ASSESSMENT: A 29-year-old male with acute appendicitis. He will benefit from appendectomy. He planned to schedule for today. Procedure was explained to the patient including risks, benefits, and alternatives. He understands. He has had the opportunity to ask questions. He is aware of the possible need for open surgery. Thank you for asking me to see Mr. Powers. MD JUAN Carpenter/MODL /[id number]
[2019-12-27] MEDS ORDERED: FENTANYL CITRATE/PF 100MCG/2 ML INJ ONE (10:54)
[2019-12-27] MEDS: SODIUM CHLORIDE 0.9% 1000ML 1,000 ML IV SCH ×2 (11:09→23:43)
[2019-12-27] MEDS ORDERED: ACETAMINOPHEN 325 MG TAB PO PRN (11:15)
[2019-12-27] MEDS ORDERED: ONDANSETRON HCL INJ 2MG/ML 2ML 2 MG/ML VIAL IV PRN (11:15)
--- NOTE | 2019-12-27 11:40 | Operative Report ---
DATE OF PROCEDURE: 12/27/2019 SURGEON: Silvio Shelby MD PREOPERATIVE DIAGNOSIS: Acute appendicitis. POSTOPERATIVE DIAGNOSIS: Acute appendicitis. PROCEDURES: Diagnostic laparoscopy, laparoscopic appendectomy. SUPPORT SERVICES SPECIALIST: None. ANESTHESIA: General endotracheal. INDICATIONS AND FINDINGS: The patient is a 29-year-old male, who presents with 1-day history of abdominal pain, localized to right lower quadrant. At Surgery, the patient was found acutely inflamed appendix. TECHNIQUE: After adequate general endotracheal anesthesia, the patient in supine position, the abdomen was prepped and draped in sterile fashion with ChloraPrep solution. Skin in the umbilicus was infiltrated with 0.5% Marcaine. Incision was made in the umbilicus. Abdominal wall was elevated and Veress needle was introduced. Pneumoperitoneum was then created. A 10 mm trocar and cannula was then passed through the umbilical wound. Laparoscopic camera was introduced. Initial laparoscopy revealed acutely inflamed appendix. A 12 mm trocar and cannula were placed suprapubically and a 5 mm trocar and cannula were placed in the right upper quadrant, these were placed under direct vision. The cecum was elevated. A window was created between the base of the appendix and the mesoappendix. The base of the appendix was divided close to the cecum with Endo-BOY stapler. The mesoappendix was also divided with the Endo-BOY stapler freeing the appendix completely. A small amount of bleeding from the mesoappendix was controlled with hemoclips. The area of the appendectomy was irrigated with saline. All fluid aspirated and inspected for hemostasis, which was seen to be adequate. It was irrigated once again with saline. All fluid was aspirated from above the liver, from the right side of the abdomen, and from the pelvis. Inspected for hemostasis, which was seen to be adequate. Instruments and cannulas were removed. Pneumoperitoneum was evacuated. Wounds were then closed. Fascia in the umbilical and suprapubic wound closed with 0 Vicryl. Skin to all wounds closed with arun. Sterile dressings applied to each wound. The patient tolerated the procedure well. Estimated blood loss was 25 mL. There were no complications. All counts were correct. The patient was taken to the recovery room in satisfactory condition. MD JUAN Carpenter/ELVI /[id number]
[2019-12-27] MEDS ORDERED: HYDROMORPHONE 1MG/1ML INJ ONE (11:42)
[2019-12-27] MEDS ORDERED: PIPER-TAZ 3.375 GM 50 ML IV SCH (12:00)
--- NOTE | 2019-12-27 12:10 | NUR ---
Received patient from PACU. Awake, lying in bed with eyes open. 3 Abdominal trocar sites with band-aids, no bleeding noted. Respiration even and unlabored without SOB. Mother at bedside. Call light in reach.
[2019-12-27 12:34] VITALS: BP 118/78
--- NOTE | 2019-12-27 13:56 | History and Physical ---
HISTORY OF PRESENT ILLNESS: The patient is a 29-year-old white male with past medical history negative for any significant medical condition. The patient came to the hospital complaining of abdominal pain and vomiting. The patient was found to have appendicitis, he subsequently underwent appendectomy. REVIEW OF SYSTEMS: CARDIOVASCULAR: No chest pain or palpitation. RESPIRATORY: No shortness of breath. No cough. GASTROINTESTINAL: He had nausea, vomiting, and abdominal pain when he came. No diarrhea. GENITOURINARY: No urinary frequency or dysuria. ALLERGIES: NOT ALLERGIC TO ANY MEDICATION. SOCIAL HISTORY: He does not smoke. He drinks occasionally. He smokes hookah apparently. PAST MEDICAL HISTORY: Negative for any significant medical condition. PHYSICAL EXAMINATION: HEART: Showed regular rhythm. Normal S1, S2 sound. LUNGS: Clear bilaterally. ABDOMEN: Soft. He had tenderness on the incision site from the appendectomy. EXTREMITIES: Show no edema. LABORATORY DATA: On CBC; white count 10.0, hemoglobin 15.3, hematocrit 45.7, and platelet count 249,000. On the CMP; sodium 140, potassium 3.9, chloride 104, CO2 of 29, BUN 11, creatinine 1.11, glucose 102, calcium 10.0, total bilirubin 1.2, AST 15, ALT 14, alkaline phosphatase 57, total protein 7.1, albumin 4.4, globulin 2.7, lipase 23. Urinalysis essentially unremarkable except for few red blood cells and mucus and amorphous sediment. On the abdomen and pelvis CT showed findings suggestive of acute appendicitis, splenomegaly. FINAL IMPRESSION: Acute appendicitis, status post appendectomy. PLAN OF TREATMENT: The patient is going to be n.p.o. for now. He is taking normal saline at 100 mL an hour, Zosyn 3.375 g IV q.6 hours, morphine 4 mg IV q.4 hours as needed for severe pain, [place] 5/325 every 4 hours as needed for moderate pain, Zofran 4 mg IV q.4 hours as needed for nausea and vomiting, Tylenol 500 mg q.4 hours as needed. Tentative discharge tomorrow. MD JACQUI Layne/ELVI /[id number]
[2019-12-27 16:29] VITALS: BP 140/71
--- NOTE | 2019-12-27 19:14 | NUR ---
Report given to night nurse. respiration even and unlabored without SOB. Call light in reach.
[2019-12-27] MEDS: HYDROCODONE/APAP 5MG-325MG TAB PO PRN (19:54)
[2019-12-27 20:13] VITALS: BP 107/75
[2019-12-27 20:35] VITALS: BP 107/75
[2019-12-28] VITALS: BP 112/70
[2019-12-28 04:00] VITALS: BP 112/65
[2019-12-28] MEDS: MORPHINE SULFATE 2 MG/ML SYR 1ML IV PRN (05:15)
[2019-12-28] MEDS: ONDANSETRON HCL INJ 2MG/ML 2ML 2 MG/ML VIAL IV PRN (05:15)
[2019-12-28] MEDS: PIPER-TAZ 3.375 GM 50 ML IV SCH ×2 (05:19→11:51)
[2019-12-28] MEDS: SODIUM CHLORIDE 0.9% 1000ML 1,000 ML IV SCH (07:09)
[2019-12-28 08:36] VITALS: BP 119/78
[2019-12-28] MEDS: HYDROCODONE/APAP 5MG-325MG TAB PO PRN ×2 (08:43→13:22)
[2019-12-28 09:49] VITALS: BP 119/78
--- NOTE | 2019-12-28 10:00 | NUR ---
TELEPHONED MD YOU TO MAKE AWARE OF DISCHARGE ORDER, AWAITING CALL BACK
--- NOTE | 2019-12-28 10:35 | NUR ---
ASSESSMENT: Spiritual concern Pt thankful for sequence of events surrounding illness. Pt states he returned from working [place] the day before he became ill. Pt's mother at bedside. Intervention: Provided hospitality and information on how to reach senior capital markets specialist, if needed. Outcome: Pt and mother expressed appreciation for visit. No need to follow at this time. ROCK [employer] Personal Loan Specialist Spiritual Care Department O: [phone]
[2019-12-28] MEDS ORDERED: ULTRACET TABLE1 EACH PO (11:06)
--- NOTE | 2019-12-28 11:19 | Discharge Summary ---
HOSPITAL COURSE: Christian Powers is a 29-year-old male with no past medical history, came with abdominal pain. He was found to have acute appendicitis. He had appendectomy done by Dr. Shelby. He is going home today. PHYSICAL EXAMINATION: HEART: Showed regular rhythm. Normal S1, S2 sound. LUNGS: Clear bilaterally. ABDOMEN: Soft. He has minimal tenderness on the incision area. VITAL SIGNS: Temperature 98.3, heart rate 78 per minute, respiratory rate 18 per minute, blood pressure 112/65, oxygen saturation 98%. LABORATORY DATA: On the BMP; sodium 140, potassium 3.9, chloride 104, CO2 of 29, BUN 11, creatinine 1.11, glucose 102, CO2 10, total bilirubin 1.2. AST 15, ALT 14, alkaline phosphatase 57, total protein 7.1, albumin 4.4, globulin 2.7, lipase 23. On the CBC, white blood count 10.0, hemoglobin 15.3, hematocrit 45.7, and platelet count 249,000. IMPRESSION: Acute appendicitis, status post appendectomy. MEDICATIONS: Ultracet one tablet q.4 hours as needed for pain. Dr. Shelby already wrote the patient to go home. Follow up with Dr. Shelby, surgeon in a week. MD JACQUI Layne/ELVI /[id number]
[2019-12-28 13:26] VITALS: BP 120/70
--- NOTE | 2019-12-28 13:30 | NUR ---
DISCHARGE INSTRUCTIONS REVIEWED WITH PT AND FAMILY, VERBALIZED UNDERSTANDING, PT WHEELED OFF UNIT VIA WC FOR DISCHARGE, NO CHANGE IN CONDITION
== END 2019-12-28 13:32 | disposition home or self-care (01) ==
LOC: ER 05:05 → ERHOLD 06:59 → MED/SURG 09:50
PROVIDERS: ADMIT Internal Medicine; ATTEND Internal Medicine
DX: K35.80 Unspecified acute appendicitis (principal)
CPT/HCPCS: 36415; 44970; 74177; 80053; 81001; 83690; 85025; 88304; 99284; G0378 ×2; J1170; J2270 ×3; J2405 ×2; J2543 ×2; J3010; J7030 ×2; Q9967